=== PATIENT | female | born 1970 ===

== ENCOUNTER 2017-09-29 01:47 | Emergency (ER) | payer OTHER ==
[~2017-09-29] VITALS: Ht 165.1 cm; Wt 60.0 kg
[2017-09-29 01:57] VITALS: Ht 165.1 cm; Wt 60.0 kg
[2017-09-29] MEDS ORDERED: LORAZEPAM 1 MG TAB PO ONE (03:30)
[2017-09-29] MEDS ORDERED: CHLORDIAZEPOXIDE 25 MG CAP PO ONE (06:30)
[2017-09-29] MEDS ORDERED: CHLO25CA9 PO (06:30)
[2017-09-29] MEDS ORDERED: LORA-441 PO (06:31)
--- NOTE | 2017-09-29 06:51 | ERD ---
ER Documentation Chief Complaint Chief Complaint involuntary movements/spasms/twitches; no ritalin, seroquel, zoloft x 1dy HPI This 46-year-old female presents for twitching involving her arms and upper body that started today. States that she had stopped taking Klonopin and Ativan by her doctors plan to put her on Seroquel and Zoloft instead. She has had no fever chills hallucinations or seizures. She otherwise feels well but has not been able to sleep well for the last couple of days. ROS All systems reviewed and are negative except as per history of present illness. Medications Home Meds Active Scripts Lorazepam* (Ativan*) 0.5 Mg Tablet, 0.5 MG PO Q8 for shaking or anxiety, #10 TAB Prov:BHASKAR MARIANO DO 09/29/17 Chlordiazepoxide* (Chlordiazepoxide*) 25 Mg Capsule, 25 MG PO as stated, #14 CAP Take 3 pills per day x 2 days Then 2 pills per day x 2 days Then 1 pill per day until it is gone. Prov:BHASKAR MARIANO DO 09/29/17 Allergies Allergies: Coded Allergies: No Known Allergy (Unverified , 09/29/17) PMhx/Soc History of Surgery: No Anesthesia Reaction: No Hx Neurological Disorder: No Hx Respiratory Disorders: No Hx Cardiac Disorders: No Hx Psychiatric Problems: Yes (depression) Hx Miscellaneous Medical Probl: Yes (seizure) Hx Alcohol Use: Yes Hx Substance Use: Yes Hx Tobacco Use: Yes Smoking Status: Former smoker Physical Exam Vitals Vital Signs Date Time Temp Pulse Resp B/P Pulse Ox O2 Delivery O2 Flow Rate FiO2 09/29/17 01:57 98.5 78 19 137/84 98 Physical Exam Const: [] No distress, pleasant Head: Atraumatic Eyes: Normal Conjunctiva, EOMI, PERRLA ENT: Normal External Ears, Nose and Mouth. Neck: Full range of motion..~ No meningismus. Resp: Clear to auscultation bilaterally Cardio: Regular rate and rhythm, no murmurs Skin: No petechiae or rashes Ext: No cyanosis, or edema Neur: Awake and alert and oriented 3, no focal deficits, cranial 2 through 12 intact, no cerebellar deficits Psych: Normal Mood and Affect Results 24 hrs Current Medications Medications (Trade) Dose Ordered Sig/Agata Route PRN Reason Start Time Stop Time Status Last Admin Dose Admin Lorazepam (Ativan) 1 mg ONCE ONCE PO 09/29/17 03:30 09/29/17 03:31 DC 09/29/17 03:16 Chlordiazepoxide (Librium) 100 mg ONCE ONCE PO 09/29/17 06:30 09/29/17 06:31 DC Procedures/MDM Probable early benzodiazepine withdrawal. He has Surendra been 8 days. Patient still has minimal symptoms. No signs of seizures. This is been prevented she was given a Ativan tab in the emergency room. She feels much better. She was also given Librium 100 mg. She wants to discontinue use of benzodiazepines going to prescribe with a Librium taper. Muscle giving her some 0.5 mg Xanax tabs in case she starts to experience any acute symptoms to prevent any issues with seizures. Told her to come back to emergency room for any concerning signs or symptoms. Want to stay in the hospital and states that she is grateful for feeling much better. Departure Diagnosis: Primary Impression: Benzodiazepine withdrawal Condition: Stable Patient Instructions: Benzodiazepine Withdrawal Additional Instructions: Call your primary care doctor TOMORROW for an appointment during the next 1-2 days.See the doctor sooner or return here if your condition worsens before your appointment time. BHASKAR MARIANO DO Sep 29, 2017 06:51
[2017-09-29 07:30] VITALS: BP 108/71; PULSE 74
== END 2017-09-29 07:41 | disposition home or self-care (01) ==
LOC: E/R 01:47
DX: S90.111A Contusion of right great toe without damage to nail, initial encounter (principal); W22.8XXA Striking against or struck by other objects, initial encounter; Y92.9 Unspecified place or not applicable
CPT/HCPCS: 99283